=== PATIENT | female | born 1935 | race Caucasian/White ===

== ENCOUNTER 2019-07-04 12:23 | Inpatient (IN) ==
[2019-07-04] MEDS ORDERED: NEXIUM IV SCH (14:15)
[2019-07-04] MEDS ORDERED: SODIUM CHLORIDE 0.9% INJ SCH (14:15)
[2019-07-04 14:45] LABS: BASO# 0.01 X1000 (0.0-0.2); BASO% 0.1 % (0.0-0.8); EOS# 0.01 X1000 (0.0-0.7); EOS% 0.1 % (0.0-10.0); HEMATOCRIT 39.5 % (37.0-47.0); HEMOGLOBIN 13.1 g/dL (12.0-16.0); IMM GRAN# 0.03 X1000 (0.0-0.04); IMM GRAN% 0.2 % (0.0-0.5); LYMPH# 0.45 X1000 (1.2-3.4); LYMPH% 3.2 % (20.5-51.1); MCH 33.8 PG (27-31); MCHC 33.2 g/dL (33-37); MCV 101.8 FL (81-99); MONO# 0.47 X1000 (0.11-0.59); MONO% 3.4 % (1.7-9.3); MPV 10.8 FL (7.4-10.4); PLT 166 X1000 (130-400); RBC 3.88 XMIL (4.2-5.4); RDW 12.6 % (11.5-14.5); WBC 13.87 X1000 (4.8-10.8)
--- NOTE | 2019-07-04 14:51 | EKG Report ---
Test Performed on : 07/04/2019 2:26:46 PM Test Reason : chest pain Blood Pressure : / mmHG Vent. Rate : 070 BPM Atrial Rate : 070 BPM P-R Int : 142 ms QRS Dur : 084 ms QT Int : 438 ms P-R-T Axes : 074 086 065 degrees QTc Int : 473 ms Sinus rhythm. with premature atrial complexes. Otherwise normal ECG When compared with ECG of 22-DEC-2008 10:13, premature ventricular complexes. are no longer present premature atrial complexes. are now present Confirmed by Maureen MAZA, Abhilash ([id number]) on 07/07/2019 8:28:28 AM
[2019-07-04 15:05] LABS: ALB/GLOB RATIO 2.1; ALBUMIN 4.2 g/dL (3.5-5.0); CALCIUM 8.7 mg/dL (8.8-10.2); CREATININE 1.1 mg/dL (0.5-0.9); POTASSIUM 4.1 mmol/L (3.5-5.1); TOTAL BILIRUBIN 0.69 mg/dL (0.20-1.00); TOTAL PROTEIN 6.2 g/dL (6.3-8.3)
[2019-07-04 15:07] LABS: LARGE PLATELETS OCCASIONAL; LYMPHS 4 % (21-51); MONO 2 % (1-9); SEGS 94 % (42-75)
--- NOTE | 2019-07-04 15:23 | Diag Imaging Result Doc PS360 ---
CHEST-1 VIEW - 07/04/2019 INDICATION: SOB COMPARISON: 07/15/2013 FINDINGS: There has been previous right mastectomy. The lungs are clear. Heart size is normal. No pneumothorax or pleural effusion. IMPRESSION: Negative exam. Electronically signed by Velasquez Ryan 07/04/2019 3:20 PM
[2019-07-04] MEDS ORDERED: PROTONIX IV SCH (16:00)
[2019-07-04] MEDS: NS 1,000 ML IV SCH ×2 (16:34→16:35)
[2019-07-04] MEDS: SODIUM CHLORIDE 0.9% INJ SCH (16:35)
[2019-07-04] MEDS: PROTONIX IV SCH (16:35)
[2019-07-04] MEDS: MORPHINE IV PRN (17:12)
--- NOTE | 2019-07-04 17:14 | Diag Imaging Result Doc PS360 ---
EXAM: XRAY PELVIS W/HIP 2-3VW RT - 07/04/2019 HISTORY: right hip pain after fall TECHNIQUE: Right hip and pelvis two views COMPARISON: 06/18/2013 FINDINGS: The right hip is internally rotated on both views. There is an apparent intertrochanteric fracture of the right femur. There is no other fracture or dislocation identified. IMPRESSION: Suboptimal positioning. Apparent intertrochanteric fracture of right femur. Electronically signed by Jose No 07/04/2019 5:12 PM
[2019-07-04] MEDS ORDERED: KEFZOL 1 GM/D5W 1 GM/50 ML IVPB IV ONE (17:36)
--- NOTE | 2019-07-04 18:22 | ORTHOPAEDICS CONSULTATION ---
DATE: 07/04/2019 REASON FOR CONSULTATION: Right hip pain after fall. HISTORY OF PRESENT ILLNESS: Ms. Jacobson is an 83-year-old female who fell in her home early yesterday morning. She was unable to weight bear after that. Her took her to Dr. Bledsoe's office today. At Dr. Bledsoe's office she was found to have a right hip fracture. She was directly admitted to [facility]. Orthopedics was consulted for management of the fracture. She states she did not get dizzy or lose consciousness. She just got caught up and tripped. She denies any other falls in the last year. She denies injury to any other extremity. She denies injury to her head or loss of consciousness. Orthopedics has been consulted for management of the fracture. PAST MEDICAL HISTORY: 1. Breast cancer. 2. Hypertension. PAST SURGICAL HISTORY: 1. Complete right mastectomy. 2. Abdominal surgery. ALLERGIES: No known drug allergies. SOCIAL HISTORY: Ms. Jacobson still lives at home along with her who is 92. She states that they still garden and do a lot of yard work. She denies alcohol, tobacco, or illicit drug use. REVIEW OF SYSTEMS: A 10-point review of systems was completed and negative except what is mentioned above in the HPI. MEDICATIONS: No daily medications. PHYSICAL EXAMINATION: Current Vital Signs: Temperature is 97.6 degrees, pulse 66, respirations 16, blood pressure 174/78. She is saturating 97% on room air. General: This is a well-appearing 83-year-old female in no acute distress. Neurological: She is alert to self and somewhat of the situation. She is confused about date and time. She did answer most of my questions appropriately. HEENT: Head is atraumatic, normocephalic. Pupils equal, round and reactive to light. Cardiovascular: Regular rate and rhythm. Respiratory: Breathing even and unlabored. Abdomen: Appears nondistended. Extremities: The right lower extremity is short and externally rotated. She does have tenderness to palpation of the hip. She is able to dorsi and plantar flex the ankle, but it does cause her some pain. Any range of motion at the hip is painful. She has good sensation in the lower extremity. She has a 2+ pedal pulse. She has very little overall edema. She denies tenderness to palpation to any other extremity. IMAGING: A hip film reviewed, interpreted by Dr. Lucero, does show an intertrochanteric right femur fracture. ASSESSMENT: Right intertrochanteric femur fracture. PLAN: We will plan on fixing this surgically. We will plan for a right trochanteric femoral nailing. The risks and benefits of the procedure have been explained to the patient. Dr. Lucero is going to speak with the family who is on their way to the hospital now. Once we are all on the same page, we will plan to do this tonight. She has been n.p.o. since breakfast this morning. She is not on any blood thinners. I did talk to Dr. Bledsoe who was in agreement with doing the procedure this evening. Overall, she is medically stable, and there is no need to prolong the surgery. We will plan on doing this this evening. Thank you for the consult. Dictated by EDOUARD Anders for Ata Lucero MD cc: EDOUARD Anders MD
--- NOTE | 2019-07-04 18:26 | Diag Imaging Result Doc PS360 ---
CT PELVIS W/O CONTRAST - 07/04/2019 INDICATION: right trochanteric hip fracture COMPARISON: None FINDINGS: There is a displaced, comminuted intertrochanteric right hip fracture. Prominent fracture lines running through both trochanters. No dislocation. Advanced degeneration of the lower lumbar spine. The pelvis is intact. IMPRESSION: Displaced, comminuted intertrochanteric right proximal femur fracture. This exam was performed using automated exposure control, adjustment of mA or kV according to patient size, and/or use of iterative reconstruction technique Electronically signed by Velasquez Ryan 07/04/2019 6:23 PM
--- NOTE | 2019-07-04 18:41 | HISTORY AND PHYSICAL ---
CHIEF COMPLAINT: History of fall sustained injury to the right side of the hip. HISTORY OF PRESENT ILLNESS: She is 83-year-old pleasant female was evaluated med-surgical clinic after she fell at home and drove my office. X-rays of right hip showed intertrochanteric fracture. Obviously patient not able to ambulate, right leg extremity was externally rotated. The patient was admitted directly to [facility] for further workup. Orthopedics staffing consultant was consulted. PAST MEDICAL HISTORY: 1. Right side breast cancer. 2. Cataracts. 3. Dementia, acid reflux disease, hypertension, right knee osteoarthritis. PAST SURGICAL HISTORY: Benign breast biopsy on the left side, radical mastectomy in the right breast in 2000, colonoscopy by Dr. Mills 2014, partial hysterectomy in 1975. MEDICINES: In my office Aricept 10 mg daily, lisinopril/hydrochlorothiazide 20/12.5 daily. ALLERGIES: Not known. SOCIAL HISTORY: for 62 years. One kid. industrial technology education teacher. Lives in [place]. No smoking, no drugs, no alcohol abuse. FAMILY HISTORY: Father of heart attack at 83. Mom of leukemia at 63. Last physical in my office September 2017. Influenza vaccine 2017, pneumococcal 2013, shingles 2005, last mammography 01/2017, colonoscopy 09/[address] Mills. REVIEW OF SYSTEMS: HEENT: No headache, no vision problem, no earache, no sore throat. Neck: No neck pain, no goiter. No lymphadenopathy. Cardiopulmonary: No chest pain, shortness of breath, PND, orthopnea . GI: No nausea, vomiting, abdominal pain. : No history of hesitancy, frequency, dysuria. Pain in the right hip. Not able to ambulate. Neuro: No focal symptoms or weakness. PHYSICAL EXAMINATION: Temperature is 97.6 degrees, pulse 66, blood pressure 174/78, 5 feet 5, 122 pounds, 97% on room air. HEENT: Atraumatic, normocephalic. Pupils equal, react to light. NECK: Supple. No lymphadenopathy. CHEST: Bilateral air entry. HEART: Sounds are regular. Right mastectomy scar present. BELLY: Soft, nontender. Midline scar present. Right hip was externally rotated and no obvious deficits. She had a mild abrasion on the right elbow. Range of motions are normal. INVESTIGATIONS: White cell count 13, hematocrit 39.5, MCV 101.8, platelet count 166,000. Sodium 137, potassium 4.1, chloride 98, BUN 18, creatinine 1.1, glucose 220, calcium 8.7, total protein 6.2. Urine cultures are pending. Chest x-ray negative exam. EKG normal sinus with PACs, nothing acute. ASSESSMENT AND PLAN: 1. An 83-year-old white female admitted to the hospital right hip fracture. Plan is pain control, IV fluids and ortho on-call. 2. Gastrointestinal prophylaxis with IV Protonix. 3. Reconcile home medications and will follow up. cc: Stanton Bledsoe MD
[2019-07-04] MEDS ORDERED: ROBINUL ONE (20:00)
[2019-07-04] MEDS ORDERED: SODIUM CHLORIDE 0.9% 10 ML ONE (20:00)
[2019-07-04] MEDS ORDERED: XYLOCAINE-MPF 2% ONE (20:00)
[2019-07-04] MEDS ORDERED: DIPRIVAN 1% ONE (20:58)
[2019-07-04] MEDS ORDERED: FENTANYL ONE (21:01)
[2019-07-04] MEDS: ARICEPT PO SCH (21:02)
[2019-07-04] MEDS ORDERED: ZOFRAN ONE (21:24)
[2019-07-04] MEDS ORDERED: MARCAINE 0.25% PF ONE (22:07)
[2019-07-04] MEDS ORDERED: OFIRMEV 1000 MG/ISOTONIC SOLN 1,000 MG/100 ML BOTTLE ONE (22:09)
[2019-07-04 22:29] LABS: URINE SOURCE CATH
[2019-07-04 22:35] LABS: BILIRUBIN URINE NEGATIVE (NEGATIVE); BLOOD URINE NEGATIVE (NEGATIVE); COLOR YELLOW; GLUCOSE URINE TRACE mg/dL (NEGATIVE); KETONE URINE 10 mg/dL (NEGATIVE); LEUKOCYTES URINE NEGATIVE (NEGATIVE); NITRITE URINE NEGATIVE (NEGATIVE); PH URINE 6.5; PROTEIN URINE NEGATIVE (NEGATIVE); SP GRAVITY URINE 1.017; TURBIDITY URINE CLEAR (CLEAR); UROBILINOGEN URINE NORMAL (NORMAL)
[2019-07-04 22:36] LABS: UR EPITHELIAL CELLS <10 /HPF (<10); URINE BACTERIA NEGATIVE /HPF; URINE RBC <10 /HPF (<10); URINE WBC <10 /HPF (<10)
[2019-07-04] MEDS ORDERED: ZOFRAN IV PRN (22:41)
[2019-07-04] MEDS ORDERED: MORPHINE IV PRN (22:41)
[2019-07-04] MEDS ORDERED: MILK OF MAGNESIA PO PRN (22:41)
[2019-07-05] MEDS: TYLENOL PO SCH ×5 (02:06→20:53)
--- NOTE | 2019-07-05 04:11 | OPERATIVE NOTE ---
PROCEDURE DATE: 07/04/2019 PREOPERATIVE DIAGNOSIS: Right intertrochanteric femur fracture. POSTOPERATIVE DIAGNOSIS: Right intertrochanteric femur fracture. PROCEDURE: Closed reduction intramedullary nailing of right intertrochanteric femur fracture. SURGEON: Dr. Ata Lucero. ASSISTANTS: None. ANESTHESIA: General. COMPLICATIONS: None. SPECIMENS: None. DRAINS: None. BLOOD LOSS: 100 mL. IMPLANTS: Synthes right TFN nail measuring 11 mm x 380 mm with a 95 mm helical blade and a 40 mm distal interlocking screw. INDICATIONS FOR PROCEDURE: Ms. Jacobson is an 83-year-old lady who sustained a same-level fall at home earlier in the day. She was unable to bear weight after this and was thus taken to the ER. X-rays demonstrated intertrochanteric femur fracture. Orthopedic surgery was thus consulted. Given her fracture pattern,the patient would benefit from closed reduction intramedullary nailing. Risks, benefits, alternative therapies were discussed with patient and family regarding surgery. Risks of surgery include, but are not limited to risks of bleeding, infection, damage to nerves and vessels around the area, continued pain, following surgery, malunion, nonunion, need for revision surgery. There is also risk of anesthesia, including blood clot, stroke, heart attack, even . Patient understands these risks and all questions were answered. Informed consent was obtained. PROCEDURE IN DETAIL: Ms. Jacobson was identified by wristband and greeted in preop holding area on 07/04/2019. Her right lower extremity, which was the operative site, was marked with indelible ink per [id number] protocol. Following this, the patient was transferred back to the operating room for surgery. Upon entering the OR, general endotracheal anesthesia was induced on her bed. We then transferred her over to the [place] table in supine position. All bony prominences were well padded. Feet were placed into well-padded boot holders and attached to the table. At this time, fluoroscopy was brought in and reduction maneuver was performed. Once we were satisfied with the reduction of AP and lateral views, the right lower extremity was then prepped and draped in routine sterile fashion. Formal time-out was performed confirming correct patient and procedure, operative site, operative side, administration of perioperative antibiotics. Everyone was in agreement. Patient received 2 g Ancef prior to incision. A 10 blade knife was used to make standard 3 cm incision about 2 cm proximal tip of the greater trochanter. Knife was used to dissect through skin, subcutaneous tissue and fascia. Once this was done, the greater trochanter was palpated. A guidewire for our nail was then placed onto the greater trochanter. When we were satisfied with his placement on both AP and lateral views, we advanced the guidewire down the level of the lesser trochanter. At this time, entry reamer was then used to enter the femoral canal. A ball-tipped guidewire was then placed down the level of the superior pole of patella. A measuring device was then used to measure length of the nail, which was found to be 380 mm. Following this, a 12 mm reamer was then used to ream the shaft down distally to the knee. We then opened and assembled a Synthes 11 mm x 380 mm trochanteric femoral nail. Nail was then placed in routine fashion and malleted into position. Once we were satisfied with positions of the nail, our 2nd incision was made using a long-handled knife through the nail insertion jig. The trocar and cannula for our cephalomedullary blade was then introduced through this incision and through a slit in the ITB band. Once this was tightened in position, guidewire was driven up into the femoral head. When we were satisfied with position in both AP and lateral planes, we then drove the guidewire up just shy of subchondral bone. Serial x-rays were taken about every 20 degrees confirming extra-articular placement of the wire. Measuring device was then used and the blade was found to measure 95 mm. At this time, the lateral cortical entry broach was then used to perforate the femoral cortex, followed by our big drill to drill up into the femoral neck. At this time, we then proceeded with impacting the helical blade up into the femoral head. The fracture maintained reduction in alignment throughout this process. Once this was done, the locking screw for the nail was then taken all the way down and backed off half a turn to allow compression at the fracture site. We then removed the insertion jig. At this time, a perfect inaja technique was used to place a single distal interlocking screw in routine fashion. This measured 40 mm. Once we were done with this, final AP and lateral views were taken of the hip as well as the knee, confirming excellent reduction of her fracture with good placement of implants. At this time, all wounds were then copiously irrigated with normal saline. Then, 0 Vicryl suture was used for closure of fascia followed by 2-0 Vicryl suture for subcutaneous tissue closure and vikas for skin closure. Then, 20 mL of 0.25% Marcaine plain were then injected around all incision sites. Wounds were then dressed with Xeroform, 4x4s and [place]a island dressing. At this time, patient was then transferred over to her hospital bed, extubated and taken to recovery in stable condition. There were no acute complications during the procedure. All sponge and sharp counts were correct at conclusion of procedure. cc: Stanton Bledsoe MD
[2019-07-05] MEDS: NS 1,000 ML IV SCH ×2 (05:42→16:49)
[2019-07-05] MEDS: LOVENOX SUBQ SCH (05:42)
[2019-07-05 07:12] LABS: HEMATOCRIT 33.5 % (37.0-47.0); HEMOGLOBIN 11.2 g/dL (12.0-16.0)
[2019-07-05 07:42] LABS: CALCIUM 8.3 mg/dL (8.8-10.2); CREATININE 0.9 mg/dL (0.5-0.9); POTASSIUM 3.6 mmol/L (3.5-5.1)
--- NOTE | 2019-07-05 07:44 | Diag Imaging Result Doc PS360 ---
XRAY PELVIS W/HIP 2-3VW RT - 07/04/2019 10:51 PM INDICATION: Postop TECHNIQUE: Three views COMPARISON: 4:56 PM FINDINGS: There is a right femoral neck stabilization jesus in good position. No hardware fracture or loosening. IMPRESSION: No complication. Electronically signed by Velasquez Ryan 07/05/2019 7:42 AM
--- NOTE | 2019-07-05 07:45 | Diag Imaging Result Doc PS360 ---
FEMUR MIN 2 VIEWS RIGHT - 07/04/2019 INDICATION: Post op to be done in PACU TECHNIQUE: Two views COMPARISON: None FINDINGS: There is a tibial jesus in good position. No hardware fracture or loosening. Alignment is anatomic. IMPRESSION: No complication. Electronically signed by Velasquez Ryan 07/05/2019 7:42 AM
[2019-07-05] MEDS: OXY IR PO PRN ×3 (10:50→20:53)
[2019-07-05] MEDS: FERROUS SULFATE PO SCH (10:51)
--- NOTE | 2019-07-05 12:45 | ORTHOPAEDICS PROGRESS NOTE ---
DATE: 07/05/2019 SUBJECTIVE: No acute events overnight. Patient is doing well. She rested well. She reports minimal pain in the hip. She has tolerated some liquids, but has not had any food yet. OBJECTIVE: LABORATORY DATA: Hematocrit 34. PHYSICAL EXAMINATION: Vital signs: Afebrile. Vital signs stable. Extremities: Examination of the right lower extremity shows surgical dressing to be clean, dry, intact. Thigh and calf are soft and compressible. Motor is intact EHL, tibialis anterior, gastrocsoleus complex. Sensation intact to light touch L3 to S1. Dorsalis pedis pulse palpable. ASSESSMENT: An 83-year-old female status post closed reduction and intramedullary nailing of right intertrochanteric femur fracture. Postoperative day 1. PLAN: 1. Patient will be weightbearing as tolerated to the right lower extremity. Therapy will work on her with mobilization and gait training. 2. Lovenox for DVT prophylaxis. 3. Ice to right hip as needed for pain. 4. Appreciate Hospitalist recommendations. 5. Disposition per primary team. The patient will likely benefit from inpatient rehab upon discharge. cc: Stanton Bledsoe MD
--- NOTE | 2019-07-05 13:50 | PROGRESS NOTE ---
DATE: 07/05/2019 SUBJECTIVE: Appreciated ortho consult. Had a nail was placed on the right hip. The patient is out of the bed, doing very well. No complaints. Family was at bedside. EXAMINATION: Temperature is 98.7 degrees, pulse 68, blood pressure is 110/51.HEENT: Within normal limits. Neck: Supple. Chest: Clear. Heart: Heart sounds are regular. Belly: Soft, nontender. No obvious deficits. INVESTIGATIONS: Hematocrit 33. SMA 7 is normal. ASSESSMENT AND PLAN: 1. Status post right intramedullary nailing for fracture, stable. Out of the bed with physical therapy. 2. Deep venous thrombosis prophylaxis with Lovenox. Continue IV fluids. 3. Dementia on Aricept. 4. Gastrointestinal prophylaxis with IV Protonix. Discussed the family about the disposition, wants to go for rehab and social welfare clerk consult. LEVEL OF DOCUMENTATION: 25 minutes. cc: Stanton Bledsoe MD
[2019-07-05] MEDS: PROTONIX IV SCH (16:49)
[2019-07-05] MEDS: SODIUM CHLORIDE 0.9% INJ SCH (16:49)
[2019-07-05] MEDS: COLACE PO SCH (20:52)
[2019-07-05] MEDS: ARICEPT PO SCH (20:53)
[2019-07-06] MEDS: TYLENOL PO SCH ×4 (06:33→20:36)
[2019-07-06] MEDS: LOVENOX SUBQ SCH ×2 (06:33→06:36)
[2019-07-06] MEDS: NS 1,000 ML IV SCH ×2 (06:36→17:57)
[2019-07-06 06:42] LABS: HEMATOCRIT 28.2 % (37.0-47.0); HEMOGLOBIN 9.4 g/dL (12.0-16.0)
[2019-07-06] MEDS: FERROUS SULFATE PO SCH (08:22)
[2019-07-06] MEDS: OXY IR PO PRN ×4 (09:06→22:37)
--- NOTE | 2019-07-06 11:46 | ORTHOPAEDICS PROGRESS NOTE ---
DATE: 07/06/2019 SUBJECTIVE: No acute events overnight. Patient is doing well overall. She is reporting some aching pain in the right thigh. She has had a decreased appetite. She denies any nausea or vomiting. She is urinating voluntarily. Physical therapy got her up yesterday and she walked 3 feet. OBJECTIVE: Hematocrit is 28. Afebrile. Vital signs are stable. Examination of right lower extremity shows surgical dressing to be clean, dry, and intact. Thigh is soft and compressible. Motor is intact, EHL, tibialis anterior, gastrocsoleus complex. Sensation intact to light touch, L3 to S1. Dorsalis pedis pulse palpable. ASSESSMENT: An 83-year-old female status post closed reduction and intramedullary nailing of right intertrochanteric femur fracture. Postoperative day 2. PLAN: 1. Patient will be weightbearing as tolerated to the right lower extremity. Physical therapy to mobilize with assistive device. 2. Ice the right hip as needed for pain. 3. Appreciate hospitalist recommendations. 4. Lovenox DVT prophylaxis. 5. Disposition per primary team. Patient will likely be set up with inpatient rehab upon discharge. I will see her back in clinic in 10 to 14 days for wound check and x-rays. cc: Stanton Bledsoe MD
--- NOTE | 2019-07-06 13:18 | PROGRESS NOTE ---
DATE: 07/06/2019 SUBJECTIVE: The patient is out of the bed, doing very well. REVIEW OF SYSTEMS: None reported. Family was at bedside. Pain is adequately controlled. PHYSICAL EXAMINATION: Temperature is 97.8 degrees, pulse 67, blood pressure is 110/53. HEENT Examination: Within normal limits. Neck: Supple. Chest: There is bilateral air entry. Heart sounds are regular. LABORATORY DATA: Hematocrit 28.2. ASSESSMENT AND PLAN: Postoperative day 2, stable. Continue present treatment. We will check the hemoglobin and hematocrit in the morning. patient services technician consult for rehab. Continue deep venous thrombosis prophylaxis and appreciated orthopedic consult. LEVEL OF DOCUMENTATION: 25 minutes. cc: Stanton Bledsoe MD
[2019-07-06] MEDS: PROTONIX IV SCH (15:16)
[2019-07-06] MEDS: SODIUM CHLORIDE 0.9% INJ SCH (16:08)
[2019-07-06] MEDS: ARICEPT PO SCH (20:36)
[2019-07-06] MEDS: COLACE PO SCH (20:36)
[2019-07-07] MEDS: TYLENOL PO SCH ×3 (05:05→15:58)
[2019-07-07] MEDS: LOVENOX SUBQ SCH (05:56)
[2019-07-07 06:42] LABS: HEMATOCRIT 28.5 % (37.0-47.0); HEMOGLOBIN 9.5 g/dL (12.0-16.0)
--- NOTE | 2019-07-07 08:32 | ORTHOPAEDICS PROGRESS NOTE ---
DATE: 07/07/2019 SUBJECTIVE: No acute events overnight. The patient has been getting up and going to the bathroom. She is tolerating a diet. Pain is controlled. OBJECTIVE: Hematocrit is 29. Afebrile. Vital signs are stable. Extremity examination of the right lower extremity shows surgical dressing to be clean, dry, intact. Thigh and calf soft and compressible. Neurovascularly intact. ASSESSMENT: An 83-year-old female, status post closed reduction and intramedullary nailing of right intertrochanteric femur fracture. Postoperative day 3. PLAN: 1. Patient is weightbearing as tolerated to the right lower extremity. Physical therapy to mobilize. 2. Ice to the right lower extremity as needed for pain. 3. Lovenox for deep vein thrombosis prophylaxis. She will need 6 weeks of deep vein thrombosis prophylaxis upon discharge. 4. Appreciate hospitalist recommendations. 5. Disposition per primary team. Patient is planning on being discharged to rehab facility. She can follow up with me in clinic in 2 weeks for wound check and repeat x-rays. cc: Stanton Bledsoe MD
[2019-07-07] MEDS ORDERED: ZOFRAN PO PRN (09:19)
[2019-07-07] MEDS: FERROUS SULFATE PO SCH (09:51)
[2019-07-07] MEDS: ARICEPT PO SCH (20:58)
[2019-07-07] MEDS: COLACE PO SCH (20:58)
--- NOTE | 2019-07-07 21:45 | PROGRESS NOTE ---
DATE: 07/07/2019 SUBJECTIVE: The patient is doing extremely well. Out of the bed. IV is out. Zofran changed to the p.r.n. nausea. OBJECTIVE: Vital signs: On examination temp is 98 degrees. Vitals are stable. HEENT: Exam within normal limits. Neck: Is supple. Chest: Is bilateral air entry. Heart: Sounds are regular. LABORATORIES: Hematocrit 28. ASSESSMENT AND PLAN: Right hip fracture status post nailing. Stable medically. I spoke with the psychologist social for rehab placement and continue present treatment. We will do the paperwork tomorrow if the bed is available. LEVEL OF DOCUMENTATION: 15 minutes. cc: Stanton Bledsoe MD
--- NOTE | 2019-07-07 22:38 | DISCHARGE SUMMARY ---
ADMISSION DATE: 07/04/2019 DISCHARGE DATE: 07/08/2019 DISCHARGING DIAGNOSIS: Right hip intertrochanteric fracture. SECONDARY DIAGNOSES: 1. History of right-sided breast cancer. 2. Cataracts. 3. Dementia. 4. Acid reflux disease. 5. History of hypertension. 6. Right knee osteoarthritis. CONSULTATIONS: Orthopedics pet nutrition specialist, Ata Lucero M.D. PROCEDURES: Intramedullary nailing on the right hip. BRIEF HISTORY: Please see the H and P that was done on 07/04/2019. In brief, she is an 83-year- old pleasant female, was admitted to the hospital after she fell at home, sustained injury to the right hip. The patient has a right hip intertrochanteric fracture. HOSPITAL COURSE: The patient was seen by Orthopedics, which was confirmed by nurse practitioner with pelvic CT. The patient has intramedullary nail on the right hip. Postoperative course was uneventful. Stable hematocrit. Patient's family requested to go for rehab. LABORATORY DATA: CBC: White cell count 13, hematocrit 28.5, platelets 166,000. SMA 7 was normal. Urinalysis is clear. Umana was taken out. Urine cultures were negative. Chest x-ray on 07/04, negative exam. DISCHARGE INSTRUCTIONS: 1. Initiate vaccination protocol prior to the discharge. 2. Colace 20 mg daily 3. Aricept 10 daily. 4. Tylenol as needed for pain. 5. Lovenox 40 mg subcutaneous q.24 for 3 weeks. 6. Iron sulfate 325 daily. 7. Ultracet 1 tablet p.o. q.8 as needed for pain. 8. Citracal with vitamin D 1 tablet p.o. b.i.d. 9. Follow up with orthopedic surgeon, Ata Lucero M.D., in 2 weeks as well as in my office. cc: Stanton Bledsoe MD
[2019-07-07] MEDS: SODIUM CHLORIDE 0.9% INJ SCH (23:13)
[2019-07-07] MEDS: PROTONIX IV SCH (23:13)
[2019-07-08] MEDS: TYLENOL PO SCH ×2 (01:24→06:38)
[2019-07-08] MEDS: MORPHINE IV PRN (02:14)
[2019-07-08] MEDS: LOVENOX SUBQ SCH (06:38)
[2019-07-08] MEDS: FERROUS SULFATE PO SCH (09:30)
[2019-07-08 11:10] VITALS: BP 134/75
[2019-07-08] MEDS ORDERED: PROTONIX PO SCH (12:00)
== END 2019-07-08 12:43 | DRG 481 ==
LOC: DIRADM 12:23 → 4N 13:24
PROVIDERS: ADMIT Internal Medicine; ATTEND Internal Medicine